=== PATIENT | male | born 1980 | race Caucasian/White ===

== ENCOUNTER 2017-10-29 18:46 | Emergency (ER) | payer BC ==
[2017-10-29 18:57] VITALS: BP 124/75
--- NOTE | 2017-10-29 19:21 | UC ---
Respiratory Complaint HPI - HPI Summary HPI Summary: patien had a head cold, now has non stop cough, hx of asthma. - History of Current Complaint Chief Complaint: UCGeneralIllness Stated Complaint: RESPIRATORY Time Seen by Provider: 10/29/17 19:05 Hx Obtained From: Patient Onset/Duration: Gradual Onset, Lasting Weeks Timing: Constant Severity Initially: Mild Severity Currently: Moderate Character: Cough: Nonproductive Aggravating Factors: Exertion, Deep Breaths, Recumbent Position Alleviating Factors: Bronchodilator Associated Signs And Symptoms: Positive: Wheezing, URI - Allergies/Home Medications Allergies/Adverse Reactions: Allergies Allergy/AdvReac Type Severity Reaction Status Date / Time Sulfa Drugs Allergy Intermediate Rash Verified 10/29/17 18:57 environmental Allergy Congestion Uncoded 10/29/17 18:57 PMH/Surg Hx/FS Hx/Imm Hx Previously Healthy: Yes - Surgical History Surgical History: Yes Surgery Procedure, Year, and Place: R knee ACL repair 1997 - Family History Known Family History: Positive: None Negative: Cardiac Disease, Hypertension - Social History Alcohol Use: Occasionally Substance Use Type: None Smoking Status (MU): Never Smoked Tobacco Have You Smoked in the Last Year: No - Immunization History Most Recent Influenza Vaccination: none Review of Systems Constitutional: Negative Skin: Negative Eyes: Negative ENT: Negative Respiratory: Shortness Of Breath, Cough Cardiovascular: Negative Gastrointestinal: Negative Genitourinary: Negative Motor: Negative Neurovascular: Negative Musculoskeletal: Negative Neurological: Negative Psychological: Negative Is Patient Immunocompromised?: No All Other Systems Reviewed And Are Negative: Yes Physical Exam Triage Information Reviewed: Yes Appearance: No Pain Distress, Well-Nourished, Ill-Appearing Vital Signs: Initial Vital Signs Temp 97.8 F 10/29/17 18:52 Pulse 80 10/29/17 18:52 Resp 17 10/29/17 18:52 BP 124/75 10/29/17 18:52 Pulse Ox 99 10/29/17 18:52 Vital Signs Reviewed: Yes Eye Exam: Normal ENT: Positive: Hearing grossly normal, Pharyngeal erythema, TMs normal Dental Exam: Normal Neck exam: Normal Neck: Positive: Supple, Nontender, No Lymphadenopathy Respiratory: Positive: Chest non-tender, No respiratory distress, No accessory muscle use, Wheezing, Inspiration Cardiovascular Exam: Normal Cardiovascular: Positive: RRR, No Murmur, Pulses Normal Abdominal Exam: Normal Abdomen Description: Positive: Nontender, No Organomegaly, Soft Bowel Sounds: Positive: Present Musculoskeletal Exam: Normal Musculoskeletal: Positive: Strength Intact, ROM Intact, No Edema Neurological Exam: Normal Neurological: Positive: Alert, Muscle Tone Normal Psychological Exam: Normal Skin Exam: Normal UC Diagnostic Evaluation - Laboratory O2 Sat by Pulse Oximetry: 99 Respiratory Course/Dx - Course Course Of Treatment: hx obtained, exam performed ,meds reviewed, treated for bronchspasm - Differential Dx/Diagnosis Differential Diagnosis/HQI/PQRI: Asthma, Bronchitis, Laryngitis, Sinusitis Provider Diagnoses: bronchospasm. hx of asthma Discharge - Discharge Plan Condition: Stable Disposition: HOME Prescriptions: predniSONE TAB* [Deltasone TAB*] 40 mg PO DAILY #14 tab Patient Education Materials: Bronchospasm (ED) Referrals: FILOMENA Miller [Primary Care Provider] - Additional Instructions: 1. start the prednisone tomorrow 2. continue with the albuterol 3. Cool mist humidification at night 4. FOllow up as needed.
== END 2017-10-29 19:31 | disposition home or self-care (01) ==
LOC: UCCORT 18:46
DX: J45.909 Unspecified asthma, uncomplicated (principal); Z88.2 Allergy status to sulfonamides
CPT/HCPCS: 99212; G0463

== ENCOUNTER 2018-09-03 16:35 | Emergency (ER) | payer BC ==
[2018-09-03 16:52] VITALS: BP 147/84
--- NOTE | 2018-09-03 18:26 | UC ---
Throat Pain/Nasal Duarte HPI - HPI Summary HPI Summary: 38 year old male presents with onset of sore throat last night. This morning developed fever, malaise, body aches, nasal congestion, and sinus pressure. Denies ear pain, chest pain, shortness of breath, wheezing, abdominal pain, nausea, or vomiting. - History of Current Complaint Chief Complaint: UCGeneralIllness Stated Complaint: CONGESTION Time Seen by Provider: 09/03/18 17:26 Hx Obtained From: Patient Onset/Duration: Sudden Onset Pain Intensity: 0 Cough: None Associated Signs & Symptoms: Positive: Sinus Discomfort, Nasal Discharge, Fever. Negative: Dysphagia, Wheezing, Hoarseness, Vomiting, Rash - Allergies/Home Medications Allergies/Adverse Reactions: Allergies Allergy/AdvReac Type Severity Reaction Status Date / Time Sulfa (Sulfonamide Allergy Intermediate Rash Verified 09/03/18 16:53 Antibiotics) environmental Allergy Congestion Uncoded 09/03/18 16:53 Home Medications: Home Medications Fluticasone NASAL SPRAY 50MCG* [Flonase NASAL SPRAY 50MCG*] 2 spray BOTH NARES DAILY 09/03/18 [History Confirmed 09/03/18] Phenylephrine/Dm/Acetaminop/GG [Mucinex Fast-Max Cold Flu] 1 tab PO BID [History Confirmed 09/03/18] PMH/Surg Hx/FS Hx/Imm Hx Previously Healthy: Yes Respiratory History: Asthma - Surgical History Surgical History: Yes Surgery Procedure, Year, and Place: R knee ACL repair 1997 - Family History Family History: Noncontributory - Social History Occupation: Employed Full-time Lives: With Family Alcohol Use: Occasionally Substance Use Type: None Smoking Status (MU): Never Smoked Tobacco Have You Smoked in the Last Year: No - Immunization History Most Recent Influenza Vaccination: none Review of Systems Constitutional: Fever, Fatigue, Other - myalgias Skin: Negative Eyes: Negative ENT: Sore Throat, Nasal Discharge, Sinus Congestion Respiratory: Negative Cardiovascular: Negative Gastrointestinal: Negative Is Patient Immunocompromised?: No All Other Systems Reviewed And Are Negative: Yes Physical Exam Triage Information Reviewed: Yes Appearance: Well-Appearing, No Pain Distress, Well-Nourished Vital Signs: Initial Vital Signs Temp 99.2 F 09/03/18 16:47 Pulse 93 09/03/18 16:47 Resp 17 09/03/18 16:47 BP 147/84 09/03/18 16:47 Pulse Ox 99 09/03/18 16:47 Vital Signs Reviewed: Yes Eyes: Positive: Conjunctiva Clear. Negative: Discharge ENT: Positive: Pharyngeal erythema - Mild with PND, Nasal congestion, Nasal drainage, TMs normal, Uvula midline. Negative: Tonsillar swelling, Tonsillar exudate, Muffled voice, Hoarse voice, Sinus tenderness Neck: Positive: Supple, Nontender, No Lymphadenopathy Respiratory: Positive: Chest non-tender, Lungs clear, Normal breath sounds, No respiratory distress Cardiovascular: Positive: RRR, No Murmur Neurological: Positive: Alert Skin Exam: Normal Diagnostics - Laboratory Diagnostic Studies Completed/Ordered: Rapid strep and influenza negative Throat Pain/Nasal Course/Dx - Course Course Of Treatment: 38 year old male with onset of fever, malaise, and URI symptoms today. Rapid strep and rapid flu negative. Symptoms likely a viral uri. Recommend symptomatic treatment. He is to follow up wtih PCP if no improvement in symptoms. Warning symptoms reviewed. Patient verbalizes understanding and agrees with POC. - Differential Dx/Diagnosis Provider Diagnoses: URI Discharge - Sign-Out/Discharge Documenting (check all that apply): Patient Departure All imaging exams completed and their final reports reviewed: No Studies - Discharge Plan Condition: Stable Disposition: HOME Patient Education Materials: Upper Respiratory Infection (ED) Referrals: Roxanne James MD [Primary Care Provider] - 5 Days (If no improvement.) Additional Instructions: The strep test and flu test that were performed in the clinic today were both negative. You symptoms are likely from a viral infection. Stay well hydrated to avoid dehydration. Continue using the fluticasone nasal spray as directed. I would recommend using a saline rinse kit such as Netti Pot or NeilMed at least twice daily to help thin secretions and promoted drainage. Take acetaqminophen (Tylenol) or ibuprofen (Advil, Motrin) according to directions as needed for aches, pain,or fever. Follow up with your primary care provider in 5 days if no improvement in symptoms. Seek immediate medical attention in the emergency room if you have persistent fever greater than 100.5 F despite taking acetaminophen or ibuprofen, develop chest pain, shortness of breath, or any worsening of symptoms. - Billing Disposition and Condition Condition: STABLE Disposition: Home
== END 2018-09-03 18:30 | disposition home or self-care (01) ==
LOC: UCCORT 16:35
DX: J06.9 Acute upper respiratory infection, unspecified (principal); Z88.1 Allergy status to other antibiotic agents
CPT/HCPCS: 87651; 99211; G0463

== ENCOUNTER 2018-09-04 16:08 | Emergency (ER) | payer BC ==
[2018-09-04 16:28] VITALS: BP 136/88
--- NOTE | 2018-09-04 16:49 | UC ---
General HPI - HPI Summary HPI Summary: Patient states that he developed a sore throat, fever, headache and body aches plus white stuff in the back of his throat 2 days ago. He also reports having some congestion but states that that was from his allergies. He came here yesterday and had a negative rapid strep and negative flu test. He returns today because after leaving yesterday he started to feel worse and that his sore throat became more uncomfortable and he developed a fever up to 102+ he notes the ongoing white spots in his throat. His no difficulty with speech or swallow but does have pain with swallow. - History of Current Complaint Chief Complaint: UCRespiratory Stated Complaint: ST Time Seen by Provider: 09/04/18 16:28 Hx Obtained From: Patient Onset/Duration: Gradual Onset Timing: Constant Pain Intensity: 0 Associated Signs & Symptoms: Positive: Fever - Allergy/Home Medications Allergies/Adverse Reactions: Allergies Allergy/AdvReac Type Severity Reaction Status Date / Time Sulfa (Sulfonamide Allergy Intermediate Rash Verified 09/04/18 16:25 Antibiotics) environmental Allergy Congestion Uncoded 09/04/18 16:25 PMH/Surg Hx/FS Hx/Imm Hx - Additional Past Medical History Additional PMH: ALLERGIES - Surgical History Surgical History: Yes Surgery Procedure, Year, and Place: R knee ACL repair 1997 - Family History Known Family History: Positive: None Negative: Cardiac Disease, Hypertension Family History: Noncontributory - Social History Occupation: Employed Full-time Alcohol Use: Occasionally Substance Use Type: None Smoking Status (MU): Never Smoked Tobacco Have You Smoked in the Last Year: No - Immunization History Most Recent Influenza Vaccination: none Vaccination Up to Date: Yes Review of Systems Constitutional: Fever Skin: Negative Eyes: Negative ENT: Sore Throat Respiratory: Negative Cardiovascular: Negative Gastrointestinal: Negative Genitourinary: Negative Motor: Negative Neurovascular: Negative Musculoskeletal: Myalgia Neurological: Headache Psychological: Negative Is Patient Immunocompromised?: No All Other Systems Reviewed And Are Negative: Yes Physical Exam Triage Information Reviewed: Yes Appearance: Well-Appearing Vital Signs: Initial Vital Signs Temp 97.7 F 09/04/18 16:23 Pulse 72 09/04/18 16:23 Resp 16 09/04/18 16:23 BP 136/88 09/04/18 16:23 Pulse Ox 99 09/04/18 16:23 Vital Signs Reviewed: Yes Eyes: Positive: Conjunctiva Clear ENT: Positive: Pharyngeal erythema, TMs normal, Tonsillar swelling, Tonsillar exudate, Hoarse voice, Uvula midline. Negative: Nasal congestion, Nasal drainage, Trismus, Muffled voice Neck: Positive: Supple, Tenderness @ - peritonsilar nodes, Enlarged Nodes @ - peritonsilar nodes Respiratory: Positive: Lungs clear, Normal breath sounds, No respiratory distress Cardiovascular: Positive: RRR, No Murmur Abdomen Description: Positive: Nontender, No Organomegaly, Soft. Negative: Distended, Guarding Bowel Sounds: Positive: Present Musculoskeletal: Positive: ROM Intact Neurological: Positive: Alert Psychological: Positive: Age Appropriate Behavior Skin Exam: Normal Course/Dx - Course Course Of Treatment: Rapid strep and flu tests from prior visit both negative. No throat culture sent. Given patient's worsening and no current nasal congestion to imply allergies, I'm going to treat for presumptive bacterial infection. I'm also going to give patient single dose of Decadron for symptomatic relief. Need for close follow-up and recheck advised to which the patient agrees. - Differential Dx - Multi-Symptom Provider Diagnoses: Exudative tonsillitis Discharge - Sign-Out/Discharge Documenting (check all that apply): Patient Departure All imaging exams completed and their final reports reviewed: No Studies - Discharge Plan Condition: Stable Disposition: HOME Prescriptions: Amoxicillin PO (*) [Amoxicillin 500 MG CAP*] 500 mg PO Q12H 10 Days #20 cap Patient Education Materials: Tonsillitis (ED) Referrals: oRxanne James MD [Primary Care Provider] - 7 Days - Billing Disposition and Condition Condition: STABLE Disposition: Home
[2018-09-04] MEDS ORDERED: Dexamethasone IV* 4 MG/ML 1 ML (4 MG) IV SLOW PU ONE (16:51)
== END 2018-09-04 16:59 | disposition home or self-care (01) ==
LOC: UCCORT 16:08
DX: J03.90 Acute tonsillitis, unspecified (principal); Z88.1 Allergy status to other antibiotic agents
CPT/HCPCS: 99212; G0463; J1100

== ENCOUNTER 2018-09-16 08:10 | Emergency (ER) | payer BC ==
--- NOTE | 2018-09-16 08:27 | UC ---
General HPI - HPI Summary HPI Summary: 38 yo gentleman presents c/o difficulty swallowing, sore throat. Earliest sx started approx 2 weeks ago. Seen 09/03/18, and again 09/04/18 here, dx'd with non-strep tonsillitis. Initially had co-sx including myalgias, sinus congestion, runny nose, sore throat with white spots on tonsils. Placed on amoxicillin x 10 days, completed on Monday (today is Monday). Co-sx have improved, but concerned that it remains difficult to swallow. Sleeps on lots of pillows. Able to eat / drink ok, but doesn't feel back to normal. Denies GI issues or pain. No issues. No rash. 09/03/18: Infl a/b neg RST neg - History of Current Complaint Stated Complaint: SORE THROAT Time Seen by Provider: 09/16/18 08:23 Hx Obtained From: Patient - Allergy/Home Medications Allergies/Adverse Reactions: Allergies Allergy/AdvReac Type Severity Reaction Status Date / Time Sulfa (Sulfonamide Allergy Intermediate Rash Verified 09/16/18 08:25 Antibiotics) environmental Allergy Congestion Uncoded 09/16/18 08:25 Home Medications: Home Medications Naproxen Sodium [Aleve] 440 mg PO ONCE 09/16/18 [History Confirmed 09/16/18] PMH/Surg Hx/FS Hx/Imm Hx Previously Healthy: Yes - Surgical History Surgical History: Yes Surgery Procedure, Year, and Place: R knee ACL repair 1997 - Family History Known Family History: Positive: None Negative: Cardiac Disease, Hypertension Family History: Noncontributory - Social History Occupation: Employed Full-time Alcohol Use: Occasionally Substance Use Type: None Smoking Status (MU): Never Smoked Tobacco Have You Smoked in the Last Year: No - Immunization History Most Recent Influenza Vaccination: none Vaccination Up to Date: Yes Review of Systems Constitutional: Negative Skin: Negative Eyes: Negative, Diplopia ENT: Other - see hpi Respiratory: Other - see hpi Cardiovascular: Negative Gastrointestinal: Negative Genitourinary: Negative Motor: Negative Neurovascular: Negative Musculoskeletal: Negative Neurological: Negative Psychological: Negative Is Patient Immunocompromised?: No All Other Systems Reviewed And Are Negative: Yes Physical Exam Triage Information Reviewed: Yes Appearance: Well-Appearing, Well-Nourished Vital Signs Reviewed: Yes Eye Exam: Normal ENT: Positive: Other - TM's good light reflex. Trachea midline. Tonsils swollen. Without with spots or exudate appreciated. A little red, bilaterally grossly similar in size. Uvula midline. Tongue grossly benign. MMM. No stridor. Neck exam: Normal Neck: Positive: Supple, No Lymphadenopathy Respiratory Exam: Normal Respiratory: Positive: Chest non-tender, Lungs clear, Normal breath sounds, No respiratory distress, No accessory muscle use Cardiovascular Exam: Normal Cardiovascular: Positive: RRR, No Murmur, Pulses Normal, Brisk Capillary Refill Abdominal Exam: Normal Abdomen Description: Positive: Nontender Musculoskeletal Exam: Normal - moves x 4 ext's, gait steady Neurological Exam: Normal - grossly nonfocal Psychological Exam: Normal - conversing easily and appopriately Skin Exam: Normal - no visible or reported rash Course/Dx - Course Course Of Treatment: ST xrays neck today - NAD. Reviewed report with pt. Blood work ordered (see ancillaries). Reviewed coa / tx plan with Mr. Ambrosio. Questions as posed answered to the best of my ability. - Differential Dx - Multi-Symptom Provider Diagnoses: Dysphagia, s/p acute tonsillitis Discharge - Sign-Out/Discharge Documenting (check all that apply): Patient Departure All imaging exams completed and their final reports reviewed: Yes - Discharge Plan Condition: Stable Disposition: HOME Patient Education Materials: Dysphagia (ED) Referrals: Roxanne James MD [Primary Care Provider] - Additional Instructions: Follow up with your primary care physician - call tomorrow for appointment this week. Consider Ear Nose Throat referral, especially if blood tests unremarkable. Antihistamine (ex ines, zyrtec, claritin over the counter) as needed for swelling, per packaging instructions. Do not mix more than one antihistamine. Seek medical attention for worse or new problems. - Billing Disposition and Condition Condition: STABLE Disposition: Home
[2018-09-16 08:30] VITALS: BP 134/86
--- NOTE | 2018-09-16 09:18 | RAD ---
HISTORY: Difficulty swallowing COMPARISONS: None. VIEWS: 2, frontal and lateral views of the soft tissues of the neck FINDINGS: The prevertebral soft tissues normal. There is a continuous air column from the comparison of the trachea. There is straightening with mild reversal of the normal cervical lordosis with anterolateral marginal osteophyte formation C5-C6. The lung apices are clear. There is no radiopaque foreign body. IMPRESSION: UNREMARKABLE SOFT TISSUES OF THE NECK. NO RADIOPAQUE FOREIGN BODY.
[2018-09-16 13:43] LABS: ABS Basophils 0 10^3/ul (0-0.2); ABS Eosinophils 0.3 10^3/ul (0-0.6); ABS Lymphocytes 1.7 10^3/ul (1.0-4.8); ABS Monocytes 0.6 10^3/ul (0-0.8); ABS Neutrophils 7.8 10^3/ul (1.5-7.7); ABS Nucleated RBC 0 10^3/ul; Eosinophil % 2.8 % (0-6); Hematocrit 49 % (42-52); Hemoglobin 16.7 g/dl (14.0-18.0); Lymphocyte % 16.2 % (25-47); Mean Corpuscular HGB Conc 34 g/dl (31-36); Mean Corpuscular Hemoglobin 29 pg (27-31); Mean Corpuscular Volume 87 fL (80-94); Mean Platelet Volume 7.4 um3 (7.4-10.4); Nucleated Red Blood Cells % 0.2; Platelet Count 308 10^3/ul (150-450); Red Blood Count 5.68 10^6/ul (4.00-5.40); Red Cell Distribution Width 13 % (10.5-15); White Blood Count 10.5 10^3/ul (3.5-10.8)
[2018-09-16 13:55] LABS: EGFR Non-African American 95.7 (>60)
== END 2018-09-16 09:34 | disposition home or self-care (01) ==
LOC: UCCORT 08:10
DX: R13.10 Dysphagia, unspecified (principal); J30.2 Other seasonal allergic rhinitis; Z87.09 Personal history of other diseases of the respiratory system; Z88.1 Allergy status to other antibiotic agents
CPT/HCPCS: 36415; 70360; 80053; 85025; 86140; 86308; 86664; 86665; 87070; 99211; G0463

== ENCOUNTER 2019-12-04 07:03 | Emergency (ER) | payer BC ==
[2019-12-04 07:22] VITALS: BP 125/78
--- NOTE | 2019-12-04 07:35 | UC ---
Knee Pain HPI - HPI Summary HPI Summary: right knee pain x 3 days pain is diffuse , 2 out of 5 , worse with walking and bending the knee better with rest, no known injury , hx of right knee ACL repair + swelling/ fluid in the right knee no fever, no redness of the knee no hx of Gout - History of Current Complaint Chief Complaint: UCLowerExtremity Stated Complaint: RT KNEE INJURY Time Seen by Provider: 12/04/19 07:14 Hx Obtained From: Patient Onset/Duration: Gradual Onset, Lasting Days - 3, Still Present Severity Initially: Moderate Severity Currently: Moderate Pain Intensity: 2 Character: Aching Aggravating Factor(s): Movement, Weight Bearing, Stairs Alleviating Factor(s): Rest Associated Signs And Symptoms: Positive: Swelling, Weakness. Negative: Redness , Bruising, Fever, Numbness, Tingling - Allergies/Home Medications Allergies/Adverse Reactions: Allergies Allergy/AdvReac Type Severity Reaction Status Date / Time Sulfa (Sulfonamide Allergy Intermediate Rash Verified 12/04/19 07:16 Antibiotics) environmental Allergy Congestion Uncoded 12/04/19 07:16 PMH/Surg Hx/FS Hx/Imm Hx - Additional Past Medical History Additional PMH: right knee ACL repair - Surgical History Surgical History: Yes Surgery Procedure, Year, and Place: R knee ACL repair 1997 - Family History Known Family History: Positive: None, Non-Contributory Negative: Cardiac Disease, Hypertension Family History: Noncontributory - Social History Alcohol Use: Occasionally Substance Use Type: None Smoking Status (MU): Never Smoked Tobacco Have You Smoked in the Last Year: No - Immunization History Most Recent Influenza Vaccination: none Vaccination Up to Date: Yes Review of Systems All Other Systems Reviewed And Are Negative: Yes Is Patient Immunocompromised?: No Physical Exam Triage Information Reviewed: Yes Appearance: Well-Appearing, No Pain Distress, Well-Nourished Vital Signs: Initial Vital Signs Temp 97.5 F 12/04/19 07:17 Pulse 70 12/04/19 07:17 Resp 14 12/04/19 07:17 BP 125/78 12/04/19 07:17 Pulse Ox 97 12/04/19 07:17 Vital Signs Reviewed: Yes Eye Exam: Normal Eyes: Positive: Conjunctiva Clear ENT: Positive: Normal ENT inspection, Hearing grossly normal, Pharynx normal Neck: Positive: Supple, Nontender, No Lymphadenopathy Respiratory: Positive: Chest non-tender, Lungs clear, Normal breath sounds Cardiovascular: Positive: RRR, No Murmur, Pulses Normal Musculoskeletal: Positive: Other: - right knee: + swelling, effusion , no tenderness, no erythema, limited ROM on Flexion , stabe ligaments Diagnostics - Radiology No standard instances Radiology Interpretation Completed By: Radiologist Summary of Radiographic Findings: xray right knee: IMPRESSION: 1. NO FRACTURE IDENTIFIED. 2. SMALL KNEE EFFUSION. 3. MILD MEDIAL TIBIOFEMORAL COMPARTMENT OSTEOARTHROPATHY. 4. LATERAL COMPARTMENT CHONDROCALCINOSIS. 5. STATUS POST ACL RECONSTRUCTION Knee Pain Course/Dx - Differential Dx/Diagnosis Provider Diagnosis: Effusion of right knee Discharge ED - Sign-Out/Discharge Documenting (check all that apply): Patient Departure All imaging exams completed and their final reports reviewed: Yes - Discharge Plan Condition: Stable Disposition: HOME Patient Education Materials: Swollen Knee Joint (ED) Forms: *School Release Referrals: Miguel Taylor MD [Medical Doctor] - As Soon As Possible Roxanne James MD [Primary Care Provider] - - Billing Disposition and Condition Condition: STABLE Disposition: Home
== END 2019-12-04 08:25 | disposition home or self-care (01) ==
LOC: UCCORT 07:03
DX: M25.461 Effusion, right knee (principal); M17.11 Unilateral primary osteoarthritis, right knee; M11.261 Other chondrocalcinosis, right knee; Z96.651 Presence of right artificial knee joint; Z88.2 Allergy status to sulfonamides; Z91.09 Other allergy status, other than to drugs and biological substances
CPT/HCPCS: 99211; G0463

== ENCOUNTER 2020-01-18 07:29 | Emergency (ER) | payer BC ==
[2020-01-18 07:48] VITALS: BP 130/80
--- NOTE | 2020-01-18 08:04 | UC ---
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 -changed depdoarnt at xmas time, but same brand he always uses -no fevers/chills or dc. - History of Current Complaint Chief Complaint: UCSkin Time Seen by Provider: 01/18/20 07:58 Stated Complaint: SKIN COMPLAINT Pain Intensity: 0 - Allergy/Home Medications Allergies/Adverse Reactions: Allergies Allergy/AdvReac Type Severity Reaction Status Date / Time Sulfa (Sulfonamide Allergy Intermediate Rash Verified 01/18/20 07:48 Antibiotics) environmental Allergy Congestion Uncoded 01/18/20 07:48 Home Medications: Home Medications Naproxen Sodium [Aleve] 120 mg PO ONCE 09/16/18 [History Confirmed 01/18/20] Fluconazole 150 MG TAB* [Diflucan 150 MG TAB*] 150 mg PO DAILY 5 Days #5 tablet 01/18/20 [Rx] Hydrocortisone Valerate 15 gm TP BID 10 Days #30 oint...g. 01/18/20 [Rx] Pseudoephedrine HCL ER TAB* [Sudafed 12 Hour*] 1 mg PO Q12HR 01/18/20 [History Confirmed 01/18/20] PMH/Surg Hx/FS Hx/Imm Hx Previously Healthy: Yes - Surgical History Surgical History: Yes Surgery Procedure, Year, and Place: RT KNEE ACL RECONSTRUCTION - [facility] - NO METAL - Family History Known Family History: Positive: None, Non-Contributory Negative: Cardiac Disease, Hypertension Family History: Noncontributory - Social History Alcohol Use: None Substance Use Type: None Smoking Status (MU): Never Smoked Tobacco Have You Smoked in the Last Year: No - Immunization History Most Recent Influenza Vaccination: none Vaccination Up to Date: Yes Review of Systems All Other Systems Reviewed And Are Negative: Yes Constitutional: Positive: Negative. Negative: Fever, Chills Skin: Positive: Rash Eyes: Positive: Negative ENT: Positive: Negative Respiratory: Positive: Negative Cardiovascular: Positive: Negative Gastrointestinal: Positive: Negative Genitourinary: Positive: Negative Musculoskeletal: Positive: Negative Is Patient Immunocompromised?: No Physical Exam Triage Information Reviewed: Yes Appearance: Well-Appearing Vital Signs: Initial Vital Signs Temp 97.6 F 02/22/20 07:44 Pulse 67 01/18/20 07:44 Resp 18 01/18/20 07:44 BP 130/80 01/18/20 07:44 Pulse Ox 98 01/18/20 07:44 Vital Signs Reviewed: Yes Neck exam: Normal Respiratory Exam: Normal Respiratory: Positive: Lungs clear Cardiovascular Exam: Normal Cardiovascular: Positive: RRR Musculoskeletal Exam: Normal Skin: Positive: Rashes - B/L axilla w/ kissing rash in proximal flexor arm and inferior aspect of axilla/upper thorax region. rash is minimal in central axilla region. dry, non-blanching, no dc. not vesicular. Course/Dx - Course Course Of Treatment: Kissing lesions in b/l axilla w/ h/o recent increase weight lifting. nonblanching dry rash that is itchy w/ satellite lesions -treat w/ oral diflucan x 5 d. denies liver porblems or taking any supplements -alos steroid topical cream for relief. - Differential Diagnoses - Skin Complaint Differential Diagnoses: Cellulitis, Contact Dermatitis, Tinea - Diagnoses Provider Diagnosis: Tinea Discharge ED - Sign-Out/Discharge Documenting (check all that apply): Patient Departure All imaging exams completed and their final reports reviewed: No Studies - Discharge Plan Condition: Stable Disposition: HOME Prescriptions: Fluconazole 150 MG TAB* [Diflucan 150 MG TAB*] 150 mg PO DAILY 5 Days #5 tablet Hydrocortisone Valerate 15 gm TP BID 10 Days #30 oint...g. Patient Education Materials: Skin Yeast Infection (ED) Referrals: Roxanne James MD [Primary Care Provider] - Additional Instructions: Follow up if symptoms increase or persist. - Billing Disposition and Condition Condition: STABLE Disposition: Home
== END 2020-01-18 08:17 | disposition home or self-care (01) ==
LOC: UCCORT 07:29
DX: B35.9 Dermatophytosis, unspecified (principal); Z91.09 Other allergy status, other than to drugs and biological substances; Z88.2 Allergy status to sulfonamides
CPT/HCPCS: 99212; G0463